=== PATIENT | male | born 1950 | race African-American/Black ===

== ENCOUNTER 2019-02-12 17:02 | Inpatient (IN) | payer MEDICARE, MEDICAID ==
[~2019-02-12] VITALS: Ht 180.3 cm; Wt 54.0 kg
[~2019-02-12 17:02] MED LIST: AMLO10TA80 PO; ASPI-986 PO; ATEN-42 PO; ATOR20TA PO; CLOP75TA4 PO; COR25 PO; DOXA4TAB3 PO; FAMO20TA8 PO; GLIP5TAB12 PO; LORA10TA7 PO; LOSA100T32 PO; METF1000 PO; NAPR-681 PO; PERP1TAB8 PO; SAXA5TAB PO; TRAM50TA3 PO; TRIAVIL PO
[2019-02-12] MEDS ORDERED: SODIUM CHLORIDE 0.9% 1,000 ML IV ONE (17:24)
[2019-02-12] MEDS ORDERED: MORPHINE SULFATE 4 MG/ML CPJ (NOT FOR IM USE) IV STA (17:24)
[2019-02-12] MEDS ORDERED: ONDANSETRON HCL 4MG/2ML INJ IV STA (17:24)
[2019-02-12 17:55] LABS: BASOPHILS % 0.6 % (0.0-2.0); HEMATOCRIT. 47.9 % (42.0-52.0); HEMOGLOBIN. 16.1 g/dL (14.0-18.0); LYMPHOCYTES % 11.7 % (20.0-50.0); MEAN CORPUSCULAR HEMOGLOBIN 29.8 pg (28.0-32.0); MEAN CORPUSCULAR VOLUME 88.8 fL (80.0-94.0); MEAN PLATELET VOLUME 7.2 fl (7.4-10.4); MONOCYTES % 7.6 % (2.0-8.0); NEUTROPHILS % 80.1 % (40.0-76.0); PLATELET 240 x1000/uL (130-400); RED CELL DISTRIBUTION WIDTH 13.9 % (11.6-14.6)
[2019-02-12 18:00] LABS: CHLORIDE 80 mEq/L (98-107)
[2019-02-12 18:04] LABS: ETHANOL BLOOD < 10 mg/dL
[2019-02-12 18:15] LABS: D-DIMER 0.63 mg/L FEU (<0.50); PARTIAL THROMBOPLASTIN TIME 30.5 sec (23.4-31.0); PROTHROMBIN TIME 10.8 sec (9.6-11.0)
[2019-02-12] MEDS ORDERED: SODIUM CHLORIDE 3% 500 ML IV ONE (19:30)
[2019-02-12 19:32] LABS: CLARITY URINE CLEAR (CLEAR); COLOR URINE YELLOW (YELLOW); KETONES URINE 1+ (NEGATIVE); LEUKOCYTE ESTERASE URINE NEGATIVE (NEGATIVE); NITRITE URINE NEGATIVE (NEGATIVE); OCCULT BLOOD URINE TRACE (NEGATIVE); PROTEIN URINE 1+ (NEGATIVE); SPECIFIC GRAVITY URINE 1.012 (1.005-1.030); UROBILINOGEN URINE 0.2 E.U./dL (0.2-1.0)
[2019-02-12 19:43] LABS: *AMPHETAMINES SCREEN URINE NEGATIVE (NEGATIVE); *BARBITURATES SCREEN URINE NEGATIVE (NEGATIVE); *BENZODIAZEPINES SCREEN URINE NEGATIVE (NEGATIVE); *COCAINE SCREEN URINE NEGATIVE (NEGATIVE); METHADONE URINE SCREEN NEGATIVE (NEGATIVE); OPIATES URINE SCREEN PRESUMTIVE POSITIVE (NEGATIVE)
[2019-02-12 19:44] LABS: CANNABINOID URINE SCREEN PRESUMTIVE POSITIVE (NEGATIVE); PHENCYCLIDINE URINE SCREEN NEGATIVE (NEGATIVE)
[2019-02-12] MEDS ORDERED: ASPIRIN 325MG EC TABLET PO ONE (20:00)
[2019-02-12] MEDS ORDERED: MORPHINE SULFATE 4 MG/ML CPJ (NOT FOR IM USE) IV ONE (20:45)
[2019-02-12] MEDS ORDERED: IOHEXOL-350 100 ML BOTTLE ONE (21:03)
[2019-02-12] MEDS ORDERED: ONDANSETRON HCL 4MG/2ML INJ IV PRN (21:45)
[2019-02-12] MEDS ORDERED: GUAIFENESIN 200MG/10ML SUGAR FREE UDC PO PRN (21:45)
[2019-02-12] MEDS ORDERED: ACETAMINOPHEN 325MG TABLET PO PRN (21:45)
[2019-02-12] MEDS ORDERED: IPRATROPIUM/ALBUTEROL 0.5-3(2.5)MG/3ML NEB HHN PRN (21:45)
[2019-02-12] MEDS ORDERED: MAGNESIUM/ALUMINUM HYDROXIDE/SIMETHICONE 30ML UDC PO PRN (21:45)
[2019-02-12] MEDS ORDERED: CLONIDINE 0.1MG TABLET PO PRN (21:45)
[2019-02-12] MEDS ORDERED: DOCUSATE SODIUM 100MG CAPSULE PO PRN (21:45)
[2019-02-12] MEDS: MORPHINE SULFATE 2 MG/ML CPJ (NOT FOR IM USE) IV PRN (23:02)
[2019-02-13] VITALS (7 sets, daily range): BP systolic 121–148; BP diastolic 68–89
[2019-02-13 01:25] LABS: CHLORIDE 84 mEq/L (98-107)
[2019-02-13] MEDS: MORPHINE SULFATE 2 MG/ML CPJ (NOT FOR IM USE) IV PRN ×2 (03:19→09:10)
[2019-02-13] MEDS ORDERED: AMLODIPINE 5MG TABLET PO NR (04:00)
[2019-02-13] MEDS: LORAZEPAM 0.5MG TABLET PO PRN (04:01)
[2019-02-13 05:33] LABS: BASOPHILS % 0.1 % (0.0-2.0); HEMATOCRIT. 47.8 % (42.0-52.0); LYMPHOCYTES % 12.8 % (20.0-50.0); MEAN CORPUSCULAR HEMOGLOBIN 29.9 pg (28.0-32.0); MEAN CORPUSCULAR VOLUME 89.2 fL (80.0-94.0); MEAN PLATELET VOLUME 7.4 fl (7.4-10.4); MONOCYTES % 9.6 % (2.0-8.0); NEUTROPHILS % 77.5 % (40.0-76.0); PLATELET 263 x1000/uL (130-400); RED BLOOD CELL COUNT 5.36 mill/uL (4.7-6.1); RED CELL DISTRIBUTION WIDTH 14.2 % (11.6-14.6)
[2019-02-13 05:38] LABS: CHLORIDE 84 mEq/L (98-107)
[2019-02-13 05:46] LABS: LDL CHOLESTEROL 94 mg/dL (5-100)
[2019-02-13 05:47] LABS: CREATINE KINASE 232 IU/L (39-308); HDL CHOLESTEROL 100 mg/dL (40-59)
[2019-02-13] MEDS ORDERED: DEXTROSE 50% WATER 50ML SYRINGE IV PRN (11:00)
[2019-02-13] MEDS: HYDROCODONE/ACETAMINOPHEN 5/325MG TABLET PO PRN (11:06)
[2019-02-13] MEDS: AMLODIPINE 5MG TABLET PO SCH ×2 (11:07→20:24)
[2019-02-13] MEDS ORDERED: GABA-290 MT (11:26)
[2019-02-13] MEDS ORDERED: ASPIRIN 325MG EC TABLET PO SCH (12:15)
[2019-02-13] MEDS ORDERED: HYDROMORPHONE HCL/PF 2MG/ML CPJ IV PRN (12:30)
[2019-02-13] MEDS: CLOPIDOGREL 75MG TABLET PO SCH (12:43)
[2019-02-13] MEDS: BLOOD SUGAR DIAGNOSTIC STRIP TEST SCH ×3 (12:43→20:24)
[2019-02-13] MEDS: FAMOTIDINE 20MG TABLET PO SCH (13:00)
[2019-02-13] MEDS: GABAPENTIN 300MG CAPSULE PO SCH (13:36)
[2019-02-13] MEDS: INSULIN LISPRO 100 UNITS/ML SUBCUT SCH ×3 (13:36→20:38)
[2019-02-13] MEDS: HYDROMORPHONE HCL/PF 2MG/ML CPJ IM PRN ×2 (14:23→20:23)
[2019-02-13] MEDS: SODIUM CHLORIDE 0.9% 1,000 ML IV SCH (17:52)
[2019-02-14] MEDS: DIPHENHYDRAMINE 50MG/ML VIAL IV PRN (00:23)
[2019-02-14] MEDS: LORAZEPAM 0.5MG TABLET PO PRN (00:23)
[2019-02-14] MEDS: HYDROMORPHONE HCL/PF 2MG/ML CPJ IM PRN ×3 (06:07→18:00)
[2019-02-14 08:00] VITALS: BP 151/83
[2019-02-14] MEDS: INSULIN LISPRO 100 UNITS/ML SUBCUT SCH ×4 (08:00→21:41)
[2019-02-14] MEDS: BLOOD SUGAR DIAGNOSTIC STRIP TEST SCH ×4 (08:18→21:00)
[2019-02-14] MEDS: SODIUM CHLORIDE 0.9% 1,000 ML IV SCH (09:38)
[2019-02-14] MEDS: GABAPENTIN 300MG CAPSULE PO SCH (09:39)
[2019-02-14] MEDS: CLOPIDOGREL 75MG TABLET PO SCH (09:39)
[2019-02-14] MEDS: FAMOTIDINE 20MG TABLET PO SCH (09:39)
[2019-02-14] MEDS: ASPIRIN 81MG EC TABLET PO SCH (09:39)
[2019-02-14] MEDS: AMLODIPINE 5MG TABLET PO SCH ×2 (09:39→21:40)
[2019-02-14 10:00] VITALS: BP 156/88
[2019-02-14 12:00] VITALS: BP 148/80
[2019-02-14 14:00] VITALS: BP 102/66
[2019-02-14 16:00] VITALS: BP 147/94
[2019-02-14 18:00] VITALS: BP 130/86
[2019-02-14] MEDS: HYDROCODONE/ACETAMINOPHEN 5/325MG TABLET PO PRN (21:47)
[2019-02-15] VITALS (10 sets, daily range): BP systolic 123–152; BP diastolic 71–95
[2019-02-15] MEDS: SODIUM CHLORIDE 0.9% 1,000 ML IV SCH (01:56)
[2019-02-15] MEDS: HYDROCODONE/ACETAMINOPHEN 5/325MG TABLET PO PRN ×2 (01:56→08:52)
[2019-02-15 06:48] LABS: BASOPHILS % 0.4 % (0.0-2.0); EOSINOPHILS % 0.5 % (0.0-5.0); HEMATOCRIT. 41.7 % (42.0-52.0); HEMOGLOBIN. 13.9 g/dL (14.0-18.0); LYMPHOCYTES % 18.4 % (20.0-50.0); MEAN CORPUSCULAR HEMOGLOBIN 29.5 pg (28.0-32.0); MEAN CORPUSCULAR VOLUME 88.3 fL (80.0-94.0); MEAN PLATELET VOLUME 7.6 fl (7.4-10.4); MONOCYTES % 13.4 % (2.0-8.0); NEUTROPHILS % 67.3 % (40.0-76.0); PLATELET 218 x1000/uL (130-400); RED BLOOD CELL COUNT 4.72 mill/uL (4.7-6.1); RED CELL DISTRIBUTION WIDTH 14.2 % (11.6-14.6)
[2019-02-15] MEDS: BLOOD SUGAR DIAGNOSTIC STRIP TEST SCH ×4 (07:30→21:42)
[2019-02-15 07:37] LABS: CHLORIDE 94 mEq/L (98-107)
[2019-02-15] MEDS: FAMOTIDINE 20MG TABLET PO SCH (08:51)
[2019-02-15] MEDS: ASPIRIN 81MG EC TABLET PO SCH (08:51)
[2019-02-15] MEDS: GABAPENTIN 300MG CAPSULE PO SCH (08:51)
[2019-02-15] MEDS: AMLODIPINE 5MG TABLET PO SCH ×2 (08:51→20:11)
[2019-02-15] MEDS: INSULIN LISPRO 100 UNITS/ML SUBCUT SCH ×4 (08:55→21:00)
[2019-02-15] MEDS ORDERED: DEMECLOCYCLINE HCL 300MG TABLET PO NR (09:15)
[2019-02-15] MEDS: CLOPIDOGREL 75MG TABLET PO SCH (10:05)
[2019-02-15] MEDS: HYDROMORPHONE HCL/PF 2MG/ML CPJ IM PRN ×2 (11:17→20:12)
[2019-02-15] MEDS ORDERED: DEMECLOCYCLINE HCL 300MG TABLET PO SCH (14:00)
[2019-02-15 18:03] LABS: HEPATITIS B SURFACE ANTIGEN NEGATIVE
[2019-02-15] MEDS: DEMECLOCYCLINE HCL 300MG TABLET PO SCH (20:11)
[2019-02-16] VITALS (13 sets, daily range): BP systolic 118–159; BP diastolic 74–98
[2019-02-16] MEDS: HYDROMORPHONE HCL/PF 2MG/ML CPJ IM PRN ×4 (02:24→22:06)
[2019-02-16 07:03] LABS: BASOPHILS % 0.6 % (0.0-2.0); EOSINOPHILS % 0.7 % (0.0-5.0); HEMATOCRIT. 42.9 % (42.0-52.0); HEMOGLOBIN. 14.3 g/dL (14.0-18.0); MEAN CORPUSCULAR HEMOGLOBIN 29.6 pg (28.0-32.0); MEAN CORPUSCULAR VOLUME 88.9 fL (80.0-94.0); MEAN PLATELET VOLUME 7.6 fl (7.4-10.4); MONOCYTES % 13.7 % (2.0-8.0); PLATELET 251 x1000/uL (130-400); RED BLOOD CELL COUNT 4.83 mill/uL (4.7-6.1)
[2019-02-16 07:13] LABS: CHLORIDE 94 mEq/L (98-107)
[2019-02-16] MEDS: BLOOD SUGAR DIAGNOSTIC STRIP TEST SCH ×4 (07:47→20:13)
[2019-02-16] MEDS: INSULIN LISPRO 100 UNITS/ML SUBCUT SCH ×4 (08:00→20:15)
[2019-02-16] MEDS: GABAPENTIN 300MG CAPSULE PO SCH (09:19)
[2019-02-16] MEDS: ASPIRIN 81MG EC TABLET PO SCH (09:19)
[2019-02-16] MEDS: DEMECLOCYCLINE HCL 300MG TABLET PO SCH ×2 (09:19→20:07)
[2019-02-16] MEDS: FAMOTIDINE 20MG TABLET PO SCH (09:19)
[2019-02-16] MEDS: AMLODIPINE 5MG TABLET PO SCH ×2 (09:20→20:07)
[2019-02-16] MEDS: CLOPIDOGREL 75MG TABLET PO SCH (09:33)
[2019-02-16] MEDS: DIPHENHYDRAMINE 50MG/ML VIAL IV PRN (17:58)
[2019-02-17] VITALS (9 sets, daily range): BP systolic 109–159; BP diastolic 57–83
[2019-02-17] MEDS: HYDROMORPHONE HCL/PF 2MG/ML CPJ IM PRN ×2 (04:09→10:15)
[2019-02-17 06:11] LABS: BASOPHILS % 0.4 % (0.0-2.0); EOSINOPHILS % 0.8 % (0.0-5.0); HEMATOCRIT. 43.5 % (42.0-52.0); HEMOGLOBIN. 14.4 g/dL (14.0-18.0); LYMPHOCYTES % 21.7 % (20.0-50.0); MEAN CORPUSCULAR HEMOGLOBIN 29.7 pg (28.0-32.0); MEAN CORPUSCULAR VOLUME 89.5 fL (80.0-94.0); MEAN PLATELET VOLUME 7.5 fl (7.4-10.4); MONOCYTES % 14.7 % (2.0-8.0); NEUTROPHILS % 62.4 % (40.0-76.0); PLATELET 243 x1000/uL (130-400); RED BLOOD CELL COUNT 4.87 mill/uL (4.7-6.1); RED CELL DISTRIBUTION WIDTH 14.3 % (11.6-14.6)
[2019-02-17] MEDS: BLOOD SUGAR DIAGNOSTIC STRIP TEST SCH ×2 (07:30→12:15)
[2019-02-17 07:49] LABS: CHLORIDE 93 mEq/L (98-107)
[2019-02-17] MEDS: INSULIN LISPRO 100 UNITS/ML SUBCUT SCH ×2 (08:00→13:24)
[2019-02-17] MEDS: CLOPIDOGREL 75MG TABLET PO SCH (10:12)
[2019-02-17] MEDS: DIPHENHYDRAMINE 50MG/ML VIAL IV PRN (10:13)
[2019-02-17] MEDS: AMLODIPINE 5MG TABLET PO SCH (10:13)
[2019-02-17] MEDS: FAMOTIDINE 20MG TABLET PO SCH (10:13)
[2019-02-17] MEDS: DEMECLOCYCLINE HCL 300MG TABLET PO SCH (10:13)
[2019-02-17] MEDS: ASPIRIN 81MG EC TABLET PO SCH (10:14)
[2019-02-17] MEDS: GABAPENTIN 300MG CAPSULE PO SCH (10:36)
== END 2019-02-17 16:00 | disposition home or self-care (01) | DRG 641 ==
LOC: ER 17:02 → 5EST 19:56 → ENRESERV 02-13 08:27
PROVIDERS: ADMIT Family Medicine Adult Medicine; ATTEND Family Medicine Adult Medicine
DX: E87.1 Hypo-osmolality and hyponatremia (principal); I45.10 Unspecified right bundle-branch block; R07.89 Other chest pain; E78.5 Hyperlipidemia, unspecified; E11.40 Type 2 diabetes mellitus with diabetic neuropathy, unspecified; I25.10 Atherosclerotic heart disease of native coronary artery without angina pectoris; E11.22 Type 2 diabetes mellitus with diabetic chronic kidney disease; I12.9 Hypertensive chronic kidney disease with stage 1 through stage 4 chronic kidney disease, or unspecified chronic kidney disease; Z96.642 Presence of left artificial hip joint; K59.00 Constipation, unspecified; N18.1 Chronic kidney disease, stage 1; Z82.49 Family history of ischemic heart disease and other diseases of the circulatory system; Z95.5 Presence of coronary angioplasty implant and graft; Z83.3 Family history of diabetes mellitus; Z79.899 Other long term (current) drug therapy; Z79.82 Long term (current) use of aspirin; Z79.84 Long term (current) use of oral hypoglycemic drugs
CPT/HCPCS: 36415; 71045; 71275; 74176; 80048; 80061; 80305; 80320; 81003; 82533; 82550; 82570; 82962; 83036; 83880; 83930; 83935; 84295; 84300; 84443; 84484; 85379; 93005; 93306; 93970; 97162; 97166; 99291; J1170; J1200; J1815; J2270; J2405; J7030; Q9967; G0480

== ENCOUNTER 2019-03-27 20:37 | Inpatient (IN) | payer MEDICARE, MEDICAID ==
[~2019-03-27] VITALS: Ht 180.3 cm; Wt 59.9 kg
[~2019-03-27 20:37] MED LIST changes: -ATEN-42 PO; -ATOR20TA PO; -COR25 PO; -DOXA4TAB3 PO; +GABA-290 MT; -GLIP5TAB12 PO; -LORA10TA7 PO; -LOSA100T32 PO; -METF1000 PO; -NAPR-681 PO; -PERP1TAB8 PO; -SAXA5TAB PO; -TRAM50TA3 PO; -TRIAVIL PO
[2019-03-27] MEDS ORDERED: SODIUM CHLORIDE 0.9% 1,000 ML IV ONE (21:09)
[2019-03-27] MEDS ORDERED: ONDANSETRON HCL 4MG/2ML INJ IV STA (21:09)
[2019-03-27] MEDS ORDERED: MORPHINE SULFATE 4 MG/ML CPJ (NOT FOR IM USE) IV STA (21:09)
[2019-03-27 21:39] LABS: BASOPHILS % 0.7 % (0.0-2.0); EOSINOPHILS % 1.2 % (0.0-5.0); HEMATOCRIT. 40.7 % (42.0-52.0); HEMOGLOBIN. 13.8 g/dL (14.0-18.0); LYMPHOCYTES % 25.1 % (20.0-50.0); MEAN CORPUSCULAR HEMOGLOBIN 30.4 pg (28.0-32.0); MEAN CORPUSCULAR VOLUME 89.5 fL (80.0-94.0); MEAN PLATELET VOLUME 6.9 fl (7.4-10.4); MONOCYTES % 12.2 % (2.0-8.0); NEUTROPHILS % 60.8 % (40.0-76.0); PLATELET 263 x1000/uL (130-400); RED BLOOD CELL COUNT 4.55 mill/uL (4.7-6.1); RED CELL DISTRIBUTION WIDTH 15.2 % (11.6-14.6)
[2019-03-27 21:44] LABS: CHLORIDE 89 mEq/L (98-107)
[2019-03-27] MEDS ORDERED: AMLODIPINE 10MG TABLET PO ONE (23:30)
[2019-03-27] MEDS ORDERED: CLONIDINE 0.1MG TABLET PO ONE (23:30)
[2019-03-27] MEDS ORDERED: ASPIRIN 325MG TABLET PO ONE (23:45)
[2019-03-28 00:22] LABS: CLARITY URINE CLEAR (CLEAR); COLOR URINE YELLOW (YELLOW); KETONES URINE 1+ (NEGATIVE); LEUKOCYTE ESTERASE URINE NEGATIVE (NEGATIVE); NITRITE URINE NEGATIVE (NEGATIVE); OCCULT BLOOD URINE NEGATIVE (NEGATIVE); PROTEIN URINE NEGATIVE (NEGATIVE); SPECIFIC GRAVITY URINE 1.004 (1.005-1.030); UROBILINOGEN URINE 0.2 E.U./dL (0.2-1.0)
[2019-03-28] MEDS: MORPHINE SULFATE 2 MG/ML CPJ (NOT FOR IM USE) IV PRN ×2 (03:40→10:24)
[2019-03-28 06:10] VITALS: BP 135/83
[2019-03-28 09:35] VITALS: BP 102/62
[2019-03-28] MEDS ORDERED: ONDANSETRON HCL 4MG/2ML INJ IV PRN (09:45)
[2019-03-28] MEDS ORDERED: CLOPIDOGREL 75MG TABLET PO SCH (09:45)
[2019-03-28] MEDS ORDERED: ACETAMINOPHEN 325MG TABLET PO PRN (09:45)
[2019-03-28] MEDS ORDERED: ASPIRIN 325MG EC TABLET PO SCH (09:45)
[2019-03-28] MEDS: CARVEDILOL 3.125 MG TABLET PO SCH ×2 (10:24→10:28)
[2019-03-28] MEDS ORDERED: SODIUM CHLORIDE 0.9% 1,000 ML IV SCH (11:15)
[2019-03-28 12:01] VITALS: BP 132/72
[2019-03-28] MEDS ORDERED: INSULIN LISPRO 100 UNITS/ML SUBCUT SCH (12:40)
[2019-03-28] MEDS ORDERED: DEXTROSE 50% WATER 50ML SYRINGE IV PRN (12:45)
[2019-03-28] MEDS ORDERED: ENOXAPARIN 40MG/0.4ML SYR SUBCUT SCH (13:00)
[2019-03-28 13:33] LABS: CHLORIDE 95 mEq/L (98-107)
[2019-03-28 13:40] LABS: LDL CHOLESTEROL 87 mg/dL (5-100)
[2019-03-28 13:42] LABS: HDL CHOLESTEROL 57 mg/dL (40-59)
[2019-03-28 13:58] LABS: BASOPHILS % 0.9 % (0.0-2.0); EOSINOPHILS % 1.2 % (0.0-5.0); HEMATOCRIT. 38.3 % (42.0-52.0); HEMOGLOBIN. 12.9 g/dL (14.0-18.0); LYMPHOCYTES % 16.9 % (20.0-50.0); MEAN CORPUSCULAR HEMOGLOBIN 30.2 pg (28.0-32.0); MEAN CORPUSCULAR VOLUME 89.9 fL (80.0-94.0); MEAN PLATELET VOLUME 6.9 fl (7.4-10.4); MONOCYTES % 11.1 % (2.0-8.0); NEUTROPHILS % 69.9 % (40.0-76.0); PLATELET 256 x1000/uL (130-400); RED BLOOD CELL COUNT 4.26 mill/uL (4.7-6.1); RED CELL DISTRIBUTION WIDTH 15.5 % (11.6-14.6)
[2019-03-28 14:34] LABS: SODIUM URINE RANDOM 45 mEq/L
[2019-03-28 14:40] LABS: *AMPHETAMINES SCREEN URINE NEGATIVE (NEGATIVE); *BARBITURATES SCREEN URINE NEGATIVE (NEGATIVE); *BENZODIAZEPINES SCREEN URINE NEGATIVE (NEGATIVE); *COCAINE SCREEN URINE NEGATIVE (NEGATIVE)
[2019-03-28 14:41] LABS: CANNABINOID URINE SCREEN NEGATIVE (NEGATIVE); METHADONE URINE SCREEN NEGATIVE (NEGATIVE); OPIATES URINE SCREEN PRESUMTIVE POSITIVE (NEGATIVE); PHENCYCLIDINE URINE SCREEN NEGATIVE (NEGATIVE)
[2019-03-28] MEDS ORDERED: BLOOD SUGAR DIAGNOSTIC STRIP TEST SCH (17:10)
== END 2019-03-28 15:08 | disposition left against medical advice (07) | DRG 392 ==
LOC: ER 20:37 → 8WST 23:40 → EDBEDREQ 03-28 00:02 → EDBEDREQDT 03-28 00:02 → EDBEDREQTM 03-28 00:02 → ENRESERV 03-28 04:38
PROVIDERS: ADMIT Internal Medicine; ATTEND Internal Medicine
DX: K52.9 Noninfective gastroenteritis and colitis, unspecified (principal); E87.1 Hypo-osmolality and hyponatremia; I13.0 Hypertensive heart and chronic kidney disease with heart failure and stage 1 through stage 4 chronic kidney disease, or unspecified chronic kidney disease; I42.9 Cardiomyopathy, unspecified; I50.22 Chronic systolic (congestive) heart failure; E11.22 Type 2 diabetes mellitus with diabetic chronic kidney disease; E78.5 Hyperlipidemia, unspecified; E87.8 Other disorders of electrolyte and fluid balance, not elsewhere classified; F17.210 Nicotine dependence, cigarettes, uncomplicated; I25.10 Atherosclerotic heart disease of native coronary artery without angina pectoris; N18.9 Chronic kidney disease, unspecified; N40.0 Benign prostatic hyperplasia without lower urinary tract symptoms; Z95.5 Presence of coronary angioplasty implant and graft; Z53.29 Procedure and treatment not carried out because of patient's decision for other reasons
CPT/HCPCS: 36415; 74176; 80048; 80061; 80305; 81003; 82962; 83880; 83930; 83935; 84300; 84443; 84484; 93005; 96361; 96374; 96375; 99285; J1650; J1815; J2270; J2405; J7030

== ENCOUNTER 2019-05-25 02:33 | Inpatient (IN) | payer MEDICARE, MEDICAID ==
[2019-05-25] VITALS (58 sets, daily range): BP systolic 78–180; BP diastolic 48–113
[~2019-05-25] VITALS: Ht 170.2 cm; Wt 59.4 kg
[2019-05-25] MEDS ORDERED: ONDANSETRON HCL 4MG/2ML INJ IV STA (02:42)
[2019-05-25] MEDS ORDERED: LABETALOL HCL 20MG/4ML CARPUJECT IV ONE (02:45)
[2019-05-25] MEDS ORDERED: NITROGLYCERIN OINT 1GM/INCH UDPKT TD ONE (02:45)
[2019-05-25 03:10] LABS: EOSINOPHILS % 0.8 % (0.0-5.0); HEMATOCRIT. 29.7 % (42.0-52.0); HEMOGLOBIN. 9.2 g/dL (14.0-18.0); LYMPHOCYTES % 24.3 % (20.0-50.0); MEAN CORPUSCULAR VOLUME 87.2 fL (80.0-94.0); MEAN PLATELET VOLUME 7.9 fl (7.4-10.4); MONOCYTES % 9.2 % (2.0-8.0); NEUTROPHILS % 64.7 % (40.0-76.0); PLATELET 480 x1000/uL (130-400); RED BLOOD CELL COUNT 3.41 mill/uL (4.7-6.1); RED CELL DISTRIBUTION WIDTH 18.5 % (11.6-14.6)
[2019-05-25 03:28] LABS: CHLORIDE 96 mEq/L (98-107)
[2019-05-25] MEDS ORDERED: SUCCINYLCHOLINE CHLORIDE 200MG/10ML IV ONE (03:30)
[2019-05-25] MEDS ORDERED: ETOMIDATE 2MG/ML 10ML VIAL IV ONE (03:30)
[2019-05-25] MEDS ORDERED: PROPOFOL 10MG/ML 100ML 100 ML IV ONE (03:30)
[2019-05-25] MEDS ORDERED: MIDAZOLAM HCL 50 MG in DEXTROSE 5% WATER 40 ML IV ONE (04:45)
[2019-05-25] MEDS ORDERED: FENTANYL CITRATE/PF 500 MCG in SODIUM CHLORIDE 0.9% 40 ML IV PRN ×3 (04:45→10:15)
[2019-05-25 09:47] LABS: BG BASE EXCESS -5.9 mmol/L (-2.0-2.0); BG CARBOXYHEMOGLOBIN 1.2 % (0.5-1.5); BG DEOXYHEMOGLOBIN 4.6 % (0.0-5.0); BG FRACTION INSPIRED OXYGEN 100; BG HCO3 ACT 19.8 mmol/L (22.0-26.0); BG METHEMOGLOBIN 0.3 % (0.0-1.5); BG OXYGEN SATURATION 95.3 % (92.0-98.5); BG OXYHEMOGLOBIN 93.9 % (94.0-97.0); BG PCO2 39.7 mmHg (35.0-45.0); BG PH 7.315 (7.350-7.450); BG PO2 98.5 mmHg (75.0-100.0); BG SAMPLE SITE RIGHT RADIAL; BG TIDAL VOLUME(mL) 500 mL; BG TOTAL HEMOGLOBIN 8.1 g/dL (12.0-18.0); BG VENT MODE VENT - A/C; BG VENT RATE 18 set
[2019-05-25] MEDS ORDERED: MIDAZOLAM HCL 50 MG in DEXTROSE 5% WATER 40 ML IV PRN (10:15)
[2019-05-25] MEDS ORDERED: DEXTROSE 50% WATER 50ML SYRINGE IV PRN (10:45)
[2019-05-25] MEDS ORDERED: IPRATROPIUM/ALBUTEROL 0.5-3(2.5)MG/3ML NEB HHN PRN (10:45)
[2019-05-25] MEDS ORDERED: FUROSEMIDE 40MG/4ML VIAL IVP NR (11:15)
[2019-05-25] MEDS: BLOOD SUGAR DIAGNOSTIC STRIP TEST SCH ×3 (11:30→21:06)
[2019-05-25] MEDS: BUDESONIDE 0.5MG/2ML NEB HHN SCH (11:42)
[2019-05-25] MEDS: IPRATROPIUM/ALBUTEROL 0.5-3(2.5)MG/3ML NEB HHN SCH ×3 (11:42→20:59)
[2019-05-25] MEDS ORDERED: VANCOMYCIN 1250MG in DEXTROSE 5% WATER 250ML IV SCH (13:00)
[2019-05-25] MEDS: PIPERACILLIN/TAZOBACTAM 3.375 G in DEXT 5% WATER 100 ML IV SCH ×2 (13:03→18:08)
[2019-05-25] MEDS: ENOXAPARIN 40MG/0.4ML SYR SUBCUT SCH (13:09)
[2019-05-25] MEDS: INSULIN LISPRO 100 UNITS/ML SUBCUT SCH ×3 (13:10→21:00)
[2019-05-25] MEDS: FENTANYL CITRATE/PF 500 MCG in SODIUM CHLORIDE 0.9% 40 ML IV PRN ×2 (13:18→21:50)
[2019-05-25] MEDS ORDERED: INFLUENZA VIRUS VACCINE(AFLURIA) 0.5ML SYR IM ONE (14:30)
[2019-05-25] MEDS ORDERED: PNEUMOCOCCAL 23-VAL P-SAC VAC 0.5 ML IM ONE (14:30)
[2019-05-25] MEDS: MIDAZOLAM HCL 50 MG in DEXTROSE 5% WATER 40 ML IV PRN ×2 (14:47→23:15)
[2019-05-25 15:46] LABS: CLARITY URINE CLEAR (CLEAR); COLOR URINE YELLOW (YELLOW); KETONES URINE NEGATIVE (NEGATIVE); LEUKOCYTE ESTERASE URINE NEGATIVE (NEGATIVE); NITRITE URINE NEGATIVE (NEGATIVE); OCCULT BLOOD URINE TRACE (NEGATIVE); PH URINE 6.5 (4.5-8.0); PROTEIN URINE NEGATIVE (NEGATIVE); SPECIFIC GRAVITY URINE 1.019 (1.005-1.030); UROBILINOGEN URINE 0.2 E.U./dL (0.2-1.0)
[2019-05-25 16:17] LABS: *AMPHETAMINES SCREEN URINE NEGATIVE (NEGATIVE); CANNABINOID URINE SCREEN PRESUMTIVE POSITIVE (NEGATIVE)
[2019-05-25 16:18] LABS: *BARBITURATES SCREEN URINE NEGATIVE (NEGATIVE); *BENZODIAZEPINES SCREEN URINE PRESUMTIVE POSITIVE (NEGATIVE); *COCAINE SCREEN URINE NEGATIVE (NEGATIVE); METHADONE URINE SCREEN NEGATIVE (NEGATIVE); OPIATES URINE SCREEN NEGATIVE (NEGATIVE); PHENCYCLIDINE URINE SCREEN NEGATIVE (NEGATIVE)
[2019-05-25] MEDS: NOREPINEPHRINE 8 MG in DEXT 5% WATER 242 ML IV PRN (20:37)
[2019-05-25] MEDS: INSULIN GLARGINE UD 100 UNITS/ML SYR SUBCUT SCH (21:13)
[2019-05-26] VITALS (86 sets, daily range): BP systolic 73–214; BP diastolic 29–112
[2019-05-26] MEDS: IPRATROPIUM/ALBUTEROL 0.5-3(2.5)MG/3ML NEB HHN SCH ×6 (00:20→16:33)
[2019-05-26] MEDS: PIPERACILLIN/TAZOBACTAM 3.375 G in DEXT 5% WATER 100 ML IV SCH ×4 (00:40→19:00)
[2019-05-26] MEDS: VANCOMYCIN 1 G PREMIX 200 ML IV SCH ×2 (01:15→12:42)
[2019-05-26] MEDS: BLOOD SUGAR DIAGNOSTIC STRIP TEST SCH ×4 (05:55→21:00)
[2019-05-26] MEDS: FENTANYL CITRATE/PF 500 MCG in SODIUM CHLORIDE 0.9% 40 ML IV PRN ×3 (05:57→18:19)
[2019-05-26] MEDS: MIDAZOLAM HCL 50 MG in DEXTROSE 5% WATER 40 ML IV PRN (05:57)
[2019-05-26] MEDS: INSULIN LISPRO 100 UNITS/ML SUBCUT SCH ×4 (06:04→21:00)
[2019-05-26 06:24] LABS: CHLORIDE 97 mEq/L (98-107)
[2019-05-26 06:27] LABS: HEMATOCRIT. 23.8 % (42.0-52.0); HEMOGLOBIN. 7.7 g/dL (14.0-18.0); MEAN CORPUSCULAR HEMOGLOBIN 27.2 pg (28.0-32.0); MEAN CORPUSCULAR VOLUME 84.2 fL (80.0-94.0); MEAN PLATELET VOLUME 8.1 fl (7.4-10.4); PLATELET 329 x1000/uL (130-400); RED BLOOD CELL COUNT 2.83 mill/uL (4.7-6.1); RED CELL DISTRIBUTION WIDTH 18.6 % (11.6-14.6)
[2019-05-26 08:01] LABS: BG CARBOXYHEMOGLOBIN 0.8 % (0.5-1.5); BG DEOXYHEMOGLOBIN 1.7 % (0.0-5.0); BG HCO3 ACT 31.5 mmol/L (22.0-26.0); BG METHEMOGLOBIN 0.3 % (0.0-1.5); BG OXYGEN SATURATION 98.3 % (92.0-98.5); BG OXYHEMOGLOBIN 97.2 % (94.0-97.0); BG PCO2 39.5 mmHg (35.0-45.0); BG PO2 137.3 mmHg (75.0-100.0); BG SAMPLE SITE RIGHT RADIAL; BG TIDAL VOLUME(mL) 500 mL; BG TOTAL HEMOGLOBIN 7.7 g/dL (12.0-18.0); BG VENT MODE VENT - A/C; BG VENT RATE 18 set
[2019-05-26] MEDS: BUDESONIDE 0.5MG/2ML NEB HHN SCH (08:11)
[2019-05-26 08:13] LABS: PLATELET ESTIMATE NORMAL
[2019-05-26] MEDS ORDERED: MIDODRINE HCL 5MG TABLET PO SCH (09:00)
[2019-05-26] MEDS: LOSARTAN POTASSIUM 25 MG TABLET PO SCH ×2 (09:00→09:14)
[2019-05-26] MEDS ORDERED: FUROSEMIDE 40MG/4ML VIAL IVP SCH (09:00)
[2019-05-26] MEDS: PANTOPRAZOLE SODIUM 40 MG/VIAL IV SCH (09:14)
[2019-05-26] MEDS: ENOXAPARIN 40MG/0.4ML SYR SUBCUT SCH (09:17)
[2019-05-26] MEDS: INSULIN GLARGINE UD 100 UNITS/ML SYR SUBCUT SCH (09:21)
[2019-05-26] MEDS ORDERED: PROPOFOL 10MG/ML 100ML 100 ML IV PRN (09:30)
[2019-05-26] MEDS ORDERED: FUROSEMIDE 20MG/2ML VIAL IVP SCH (11:00)
[2019-05-26] MEDS: MIDAZOLAM HCL 100 MG in DEXT 5% WATER 80 ML IV PRN (12:11)
[2019-05-27] VITALS (50 sets, daily range): BP systolic 70–185; BP diastolic 43–154
[2019-05-27] MEDS: IPRATROPIUM/ALBUTEROL 0.5-3(2.5)MG/3ML NEB HHN SCH ×6 (00:02→20:43)
[2019-05-27] MEDS: PIPERACILLIN/TAZOBACTAM 3.375 G in DEXT 5% WATER 100 ML IV SCH ×3 (01:00→12:07)
[2019-05-27] MEDS: VANCOMYCIN 1 G PREMIX 200 ML IV SCH (01:00)
[2019-05-27] MEDS: FENTANYL CITRATE/PF 500 MCG in SODIUM CHLORIDE 0.9% 40 ML IV PRN ×3 (02:32→17:01)
[2019-05-27] MEDS: BLOOD SUGAR DIAGNOSTIC STRIP TEST SCH ×4 (07:03→22:00)
[2019-05-27] MEDS: INSULIN LISPRO 100 UNITS/ML SUBCUT SCH ×4 (07:13→22:30)
[2019-05-27 07:49] LABS: HEMATOCRIT. 23.4 % (42.0-52.0); HEMOGLOBIN. 7.4 g/dL (14.0-18.0); MEAN CORPUSCULAR HEMOGLOBIN 26.8 pg (28.0-32.0); MEAN CORPUSCULAR VOLUME 84.7 fL (80.0-94.0); MEAN PLATELET VOLUME 8.2 fl (7.4-10.4); PLATELET 310 x1000/uL (130-400); RED BLOOD CELL COUNT 2.76 mill/uL (4.7-6.1); RED CELL DISTRIBUTION WIDTH 18.4 % (11.6-14.6)
[2019-05-27 07:54] LABS: CHLORIDE 96 mEq/L (98-107)
[2019-05-27] MEDS: BUDESONIDE 0.5MG/2ML NEB HHN SCH ×2 (08:36→20:44)
[2019-05-27 09:15] LABS: BG BASE EXCESS 11.9 mmol/L (-2.0-2.0); BG CARBOXYHEMOGLOBIN 1.3 % (0.5-1.5); BG DEOXYHEMOGLOBIN 1.5 % (0.0-5.0); BG FRACTION INSPIRED OXYGEN 40; BG HCO3 ACT 37.3 mmol/L (22.0-26.0); BG METHEMOGLOBIN 0.2 % (0.0-1.5); BG OXYGEN SATURATION 98.5 % (92.0-98.5); BG PCO2 55.8 mmHg (35.0-45.0); BG PH 7.443 (7.350-7.450); BG PO2 137.5 mmHg (75.0-100.0); BG SAMPLE SITE RIGHT BRACHIAL; BG TIDAL VOLUME(mL) 500 mL; BG TOTAL HEMOGLOBIN 7.3 g/dL (12.0-18.0); BG VENT MODE VENT - A/C; BG VENT RATE 14 set
[2019-05-27] MEDS: PANTOPRAZOLE SODIUM 40 MG/VIAL IV SCH (09:53)
[2019-05-27] MEDS: ENOXAPARIN 40MG/0.4ML SYR SUBCUT SCH (09:54)
[2019-05-27] MEDS: LOSARTAN POTASSIUM 25 MG TABLET PO SCH (09:55)
[2019-05-27 11:13] LABS: PLATELET ESTIMATE NORMAL
[2019-05-27] MEDS: VANCOMYCIN 1250MG in DEXTROSE 5% WATER 250ML IV SCH (12:11)
[2019-05-27] MEDS ORDERED: POTASSIUM CHLORIDE 20MEQ TABLET SR PO NR (14:45)
[2019-05-27] MEDS: MIDAZOLAM HCL 100 MG in DEXT 5% WATER 80 ML IV PRN (15:02)
[2019-05-28] VITALS (63 sets, daily range): BP systolic 91–186; BP diastolic 53–112
[2019-05-28] MEDS: FENTANYL CITRATE/PF 500 MCG in SODIUM CHLORIDE 0.9% 40 ML IV PRN ×4 (00:02→20:02)
[2019-05-28] MEDS: IPRATROPIUM/ALBUTEROL 0.5-3(2.5)MG/3ML NEB HHN SCH ×6 (00:45→20:28)
[2019-05-28] MEDS: VANCOMYCIN 1250MG in DEXTROSE 5% WATER 250ML IV SCH ×2 (01:00→13:08)
[2019-05-28] MEDS: NOREPINEPHRINE 8 MG in DEXT 5% WATER 242 ML IV PRN (01:53)
[2019-05-28] MEDS: VANCOMYCIN 1 G PREMIX 200 ML IV SCH (02:22)
[2019-05-28] MEDS: MIDAZOLAM HCL 100 MG in DEXT 5% WATER 80 ML IV PRN ×2 (04:42→13:06)
[2019-05-28 06:17] LABS: BASOPHILS % 0.3 % (0.0-2.0); EOSINOPHILS % 0.8 % (0.0-5.0); HEMATOCRIT. 21.1 % (42.0-52.0); LYMPHOCYTES % 15.8 % (20.0-50.0); MEAN CORPUSCULAR HEMOGLOBIN 27.2 pg (28.0-32.0); MEAN CORPUSCULAR VOLUME 83.9 fL (80.0-94.0); MEAN PLATELET VOLUME 7.9 fl (7.4-10.4); MONOCYTES % 12.4 % (2.0-8.0); NEUTROPHILS % 70.7 % (40.0-76.0); PLATELET 278 x1000/uL (130-400); RED BLOOD CELL COUNT 2.51 mill/uL (4.7-6.1); RED CELL DISTRIBUTION WIDTH 18.6 % (11.6-14.6)
[2019-05-28 06:24] LABS: CHLORIDE 99 mEq/L (98-107)
[2019-05-28 06:26] LABS: HEMOGLOBIN. 6.8 g/dL (14.0-18.0)
[2019-05-28] MEDS: BLOOD SUGAR DIAGNOSTIC STRIP TEST SCH ×4 (07:15→21:00)
[2019-05-28] MEDS: INSULIN LISPRO 100 UNITS/ML SUBCUT SCH ×4 (07:21→21:00)
[2019-05-28] MEDS: BUDESONIDE 0.5MG/2ML NEB HHN SCH ×2 (08:42→20:29)
[2019-05-28] MEDS: PIPERACILLIN/TAZOBACTAM 3.375 G in DEXT 5% WATER 100 ML IV SCH ×3 (09:10→21:27)
[2019-05-28] MEDS: LOSARTAN POTASSIUM 25 MG TABLET PO SCH (09:12)
[2019-05-28 10:45] LABS: TOTAL IRON BINDING CAPACITY 239 ug/dL (250-450)
[2019-05-28] MEDS: PANTOPRAZOLE SODIUM 40 MG/VIAL IV SCH ×2 (10:47→21:27)
[2019-05-28 12:23] LABS: BG BASE EXCESS 4.9 mmol/L (-2.0-2.0); BG CARBOXYHEMOGLOBIN 1.4 % (0.5-1.5); BG DEOXYHEMOGLOBIN 5.8 % (0.0-5.0); BG FRACTION INSPIRED OXYGEN 35; BG HCO3 ACT 30.1 mmol/L (22.0-26.0); BG METHEMOGLOBIN 0.3 % (0.0-1.5); BG OXYGEN SATURATION 94.1 % (92.0-98.5); BG OXYHEMOGLOBIN 92.5 % (94.0-97.0); BG PCO2 48.8 mmHg (35.0-45.0); BG PH 7.408 (7.350-7.450); BG PO2 74.4 mmHg (75.0-100.0); BG SAMPLE SITE RIGHT BRACHIAL; BG TIDAL VOLUME(mL) 500 mL; BG TOTAL HEMOGLOBIN 7.4 g/dL (12.0-18.0); BG VENT MODE VENT - A/C; BG VENT RATE 14 set
[2019-05-28] MEDS ORDERED: IRON SUCROSE COMPLEX 100 MG/5 ML ML IV NR (13:15)
[2019-05-28] MEDS: INSULIN GLARGINE UD 100 UNITS/ML SYR SUBCUT SCH (21:27)
[2019-05-29] VITALS (71 sets, daily range): BP systolic 92–189; BP diastolic 35–113
[2019-05-29] MEDS: VANCOMYCIN 1250MG in DEXTROSE 5% WATER 250ML IV SCH ×2 (00:03→16:57)
[2019-05-29] MEDS: IPRATROPIUM/ALBUTEROL 0.5-3(2.5)MG/3ML NEB HHN SCH ×6 (00:15→20:53)
[2019-05-29] MEDS: FENTANYL CITRATE/PF 500 MCG in SODIUM CHLORIDE 0.9% 40 ML IV PRN ×3 (00:43→15:30)
[2019-05-29] MEDS: MIDAZOLAM HCL 100 MG in DEXT 5% WATER 80 ML IV PRN ×2 (00:43→15:29)
[2019-05-29 00:57] LABS: HEMATOCRIT 29.5 % (42.0-52.0); HEMOGLOBIN 9.7 g/dL (14.0-18.0)
[2019-05-29] MEDS: PIPERACILLIN/TAZOBACTAM 3.375 G in DEXT 5% WATER 100 ML IV SCH ×4 (02:29→20:54)
[2019-05-29 05:55] LABS: HEMATOCRIT. 30.6 % (42.0-52.0); HEMOGLOBIN. 10.2 g/dL (14.0-18.0); MEAN CORPUSCULAR HEMOGLOBIN 28.4 pg (28.0-32.0); MEAN CORPUSCULAR VOLUME 85.5 fL (80.0-94.0); PLATELET 256 x1000/uL (130-400); RED BLOOD CELL COUNT 3.59 mill/uL (4.7-6.1); RED CELL DISTRIBUTION WIDTH 17.2 % (11.6-14.6)
[2019-05-29] MEDS: BLOOD SUGAR DIAGNOSTIC STRIP TEST SCH ×4 (06:23→20:54)
[2019-05-29 06:24] LABS: CHLORIDE 99 mEq/L (98-107)
[2019-05-29] MEDS: INSULIN LISPRO 100 UNITS/ML SUBCUT SCH ×4 (06:26→20:54)
[2019-05-29 07:10] LABS: PLATELET ESTIMATE NORMAL
[2019-05-29] MEDS: BUDESONIDE 0.5MG/2ML NEB HHN SCH ×2 (07:50→20:41)
[2019-05-29] MEDS: CLONIDINE 0.1MG TABLET PO PRN (08:14)
[2019-05-29] MEDS: LOSARTAN POTASSIUM 25 MG TABLET PO SCH (08:15)
[2019-05-29] MEDS: IRON SUCROSE COMPLEX 100 MG/5 ML ML IV SCH (09:09)
[2019-05-29] MEDS: PANTOPRAZOLE SODIUM 40 MG/VIAL IV SCH ×2 (09:10→20:54)
[2019-05-29] MEDS: INSULIN GLARGINE UD 100 UNITS/ML SYR SUBCUT SCH ×2 (09:33→21:24)
[2019-05-29 09:55] LABS: BG BASE EXCESS 7.4 mmol/L (-2.0-2.0); BG CARBOXYHEMOGLOBIN 0.9 % (0.5-1.5); BG DEOXYHEMOGLOBIN 4.4 % (0.0-5.0); BG FRACTION INSPIRED OXYGEN 35; BG HCO3 ACT 33.6 mmol/L (22.0-26.0); BG METHEMOGLOBIN 0.1 % (0.0-1.5); BG OXYGEN SATURATION 95.6 % (92.0-98.5); BG OXYHEMOGLOBIN 94.6 % (94.0-97.0); BG PH 7.404 (7.350-7.450); BG PO2 81.1 mmHg (75.0-100.0); BG SAMPLE SITE RIGHT BRACHIAL; BG TIDAL VOLUME(mL) 500 mL; BG TOTAL HEMOGLOBIN 12.2 g/dL (12.0-18.0); BG VENT MODE VENT - A/C; BG VENT RATE 14 set
[2019-05-29 11:18] LABS: PROTHROMBIN TIME 10.2 sec (9.6-11.0)
[2019-05-29] MEDS ORDERED: FENTANYL CITRATE/PF 50MCG/ML 2ML VIAL ONE (15:28)
[2019-05-29] MEDS ORDERED: FENTANYL CITRATE/PF 50MCG/ML 2ML VIAL IV PRN (15:28)
[2019-05-29] MEDS ORDERED: MIDAZOLAM HCL 5 MG/5 ML VIAL ONE (15:28)
[2019-05-29] MEDS ORDERED: SIMETHICONE 40 MG/0.6 ML 30ML ONE (15:28)
[2019-05-29] MEDS ORDERED: MIDAZOLAM HCL 5 MG/5 ML VIAL IV PRN (15:28)
[2019-05-30] VITALS (92 sets, daily range): BP systolic 104–213; BP diastolic 58–123
[2019-05-30] MEDS: IPRATROPIUM/ALBUTEROL 0.5-3(2.5)MG/3ML NEB HHN SCH ×6 (00:36→20:21)
[2019-05-30] MEDS: FENTANYL CITRATE/PF 500 MCG in SODIUM CHLORIDE 0.9% 40 ML IV PRN ×2 (00:58→09:23)
[2019-05-30] MEDS: PIPERACILLIN/TAZOBACTAM 3.375 G in DEXT 5% WATER 100 ML IV SCH ×4 (01:00→20:05)
[2019-05-30] MEDS: CLONIDINE 0.1MG TABLET PO PRN (01:19)
[2019-05-30] MEDS: VANCOMYCIN 1250MG in DEXTROSE 5% WATER 250ML IV SCH ×2 (05:14→17:45)
[2019-05-30 06:07] LABS: HEMATOCRIT. 30.7 % (42.0-52.0); HEMOGLOBIN. 9.9 g/dL (14.0-18.0); MEAN CORPUSCULAR HEMOGLOBIN 27.3 pg (28.0-32.0); MEAN CORPUSCULAR VOLUME 84.7 fL (80.0-94.0); PLATELET 271 x1000/uL (130-400); RED BLOOD CELL COUNT 3.63 mill/uL (4.7-6.1)
[2019-05-30] MEDS: BLOOD SUGAR DIAGNOSTIC STRIP TEST SCH ×4 (06:21→20:02)
[2019-05-30] MEDS: INSULIN LISPRO 100 UNITS/ML SUBCUT SCH ×4 (06:21→20:05)
[2019-05-30 06:27] LABS: CHLORIDE 99 mEq/L (98-107)
[2019-05-30] MEDS: BUDESONIDE 0.5MG/2ML NEB HHN SCH ×2 (07:35→20:21)
[2019-05-30 07:38] LABS: BG BASE EXCESS 7.2 mmol/L (-2.0-2.0); BG CARBOXYHEMOGLOBIN 0.5 % (0.5-1.5); BG DEOXYHEMOGLOBIN 4.4 % (0.0-5.0); BG FRACTION INSPIRED OXYGEN 35; BG HCO3 ACT 31.9 mmol/L (22.0-26.0); BG METHEMOGLOBIN 0.1 % (0.0-1.5); BG OXYGEN SATURATION 95.6 % (92.0-98.5); BG PCO2 46.1 mmHg (35.0-45.0); BG PH 7.458 (7.350-7.450); BG PO2 81.3 mmHg (75.0-100.0); BG SAMPLE SITE RIGHT BRACHIAL; BG TIDAL VOLUME(mL) 500 mL; BG TOTAL HEMOGLOBIN 10.7 g/dL (12.0-18.0); BG VENT MODE VENT - A/C; BG VENT RATE 14 set
[2019-05-30] MEDS: PANTOPRAZOLE SODIUM 40 MG/VIAL IV SCH ×2 (08:00→20:05)
[2019-05-30] MEDS: LOSARTAN POTASSIUM 25 MG TABLET PO SCH (08:00)
[2019-05-30] MEDS: IRON SUCROSE COMPLEX 100 MG/5 ML ML IV SCH (08:00)
[2019-05-30 08:05] LABS: PLATELET ESTIMATE NORMAL
[2019-05-30] MEDS: INSULIN GLARGINE UD 100 UNITS/ML SYR SUBCUT SCH ×2 (09:03→21:28)
[2019-05-30] MEDS: MIDAZOLAM HCL 100 MG in DEXT 5% WATER 80 ML IV PRN (09:44)
[2019-05-30 13:20] LABS: BG CARBOXYHEMOGLOBIN 0.6 % (0.5-1.5); BG DEOXYHEMOGLOBIN 3.3 % (0.0-5.0); BG FRACTION INSPIRED OXYGEN 35; BG HCO3 ACT 31.4 mmol/L (22.0-26.0); BG METHEMOGLOBIN 0.2 % (0.0-1.5); BG OXYGEN SATURATION 96.7 % (92.0-98.5); BG OXYHEMOGLOBIN 95.9 % (94.0-97.0); BG PCO2 44.2 mmHg (35.0-45.0); BG PO2 89.1 mmHg (75.0-100.0); BG PRESSURE SUPPORT 8; BG SAMPLE SITE RIGHT RADIAL; BG TOTAL HEMOGLOBIN 11.8 g/dL (12.0-18.0); BG VENT MODE VENT - CPAP
[2019-05-30] MEDS ORDERED: HYDRALAZINE 20MG/ML VIAL IV PRN (15:30)
[2019-05-30] MEDS ORDERED: FUROSEMIDE 20MG/2ML VIAL IVP NR (17:00)
[2019-05-31] VITALS (26 sets, daily range): BP systolic 106–147; BP diastolic 59–96
[2019-05-31] MEDS: IPRATROPIUM/ALBUTEROL 0.5-3(2.5)MG/3ML NEB HHN SCH ×6 (00:19→20:59)
[2019-05-31] MEDS: PIPERACILLIN/TAZOBACTAM 3.375 G in DEXT 5% WATER 100 ML IV SCH ×4 (01:21→20:28)
[2019-05-31] MEDS: VANCOMYCIN 1250MG in DEXTROSE 5% WATER 250ML IV SCH ×2 (04:58→17:29)
[2019-05-31] MEDS: BLOOD SUGAR DIAGNOSTIC STRIP TEST SCH ×4 (06:08→20:30)
[2019-05-31] MEDS: INSULIN LISPRO 100 UNITS/ML SUBCUT SCH ×4 (06:08→20:30)
[2019-05-31 06:25] LABS: BASOPHILS % 0.5 % (0.0-2.0); EOSINOPHILS % 0.6 % (0.0-5.0); HEMATOCRIT. 32.5 % (42.0-52.0); HEMOGLOBIN. 10.9 g/dL (14.0-18.0); LYMPHOCYTES % 7.5 % (20.0-50.0); MEAN CORPUSCULAR HEMOGLOBIN 28.1 pg (28.0-32.0); MEAN CORPUSCULAR VOLUME 83.8 fL (80.0-94.0); MEAN PLATELET VOLUME 8.1 fl (7.4-10.4); MONOCYTES % 13.6 % (2.0-8.0); NEUTROPHILS % 77.8 % (40.0-76.0); PLATELET 292 x1000/uL (130-400); RED BLOOD CELL COUNT 3.87 mill/uL (4.7-6.1); RED CELL DISTRIBUTION WIDTH 17.3 % (11.6-14.6)
[2019-05-31 06:31] LABS: CHLORIDE 98 mEq/L (98-107)
[2019-05-31] MEDS ORDERED: POTASSIUM CHLORIDE 20MEQ/PACKET PO NR (08:00)
[2019-05-31] MEDS: IRON SUCROSE COMPLEX 100 MG/5 ML ML IV SCH (08:07)
[2019-05-31] MEDS: LOSARTAN POTASSIUM 25 MG TABLET PO SCH ×3 (08:07→20:29)
[2019-05-31] MEDS: PANTOPRAZOLE SODIUM 40 MG/VIAL IV SCH ×2 (08:07→20:29)
[2019-05-31] MEDS: BUDESONIDE 0.5MG/2ML NEB HHN SCH ×2 (08:09→20:59)
[2019-05-31] MEDS ORDERED: POTASSIUM CHLORIDE INJ 40 MEQ in DEXT 5% WATER 250 ML IV NR (09:00)
[2019-05-31] MEDS: INSULIN GLARGINE UD 100 UNITS/ML SYR SUBCUT SCH ×2 (09:25→22:47)
[2019-05-31] MEDS: DOCUSATE SODIUM 250MG CAPSULE PO SCH (11:47)
[2019-05-31] MEDS: FERROUS SULFATE 325MG TABLET PO SCH ×2 (12:17→17:32)
[2019-05-31] MEDS: ACETAMINOPHEN 325MG TABLET PO PRN (13:06)
[2019-05-31] MEDS: ATORVASTATIN CALCIUM 10MG TABLET PO SCH (20:29)
[2019-06-01] VITALS (12 sets, daily range): BP systolic 110–143; BP diastolic 67–86
[2019-06-01] MEDS: IPRATROPIUM/ALBUTEROL 0.5-3(2.5)MG/3ML NEB HHN SCH ×5 (00:16→20:28)
[2019-06-01] MEDS: PIPERACILLIN/TAZOBACTAM 3.375 G in DEXT 5% WATER 100 ML IV SCH ×4 (01:28→19:37)
[2019-06-01] MEDS: ONDANSETRON HCL 4MG/2ML INJ IV PRN ×3 (03:43→22:25)
[2019-06-01] MEDS: VANCOMYCIN 1250MG in DEXTROSE 5% WATER 250ML IV SCH (04:33)
[2019-06-01 07:20] LABS: HEMATOCRIT. 32.1 % (42.0-52.0); HEMOGLOBIN. 10.7 g/dL (14.0-18.0); MEAN CORPUSCULAR HEMOGLOBIN 28.1 pg (28.0-32.0); MEAN CORPUSCULAR VOLUME 84.1 fL (80.0-94.0); MEAN PLATELET VOLUME 8.3 fl (7.4-10.4); PLATELET 290 x1000/uL (130-400); RED BLOOD CELL COUNT 3.81 mill/uL (4.7-6.1); RED CELL DISTRIBUTION WIDTH 17.5 % (11.6-14.6)
[2019-06-01 07:21] LABS: CHLORIDE 99 mEq/L (98-107)
[2019-06-01] MEDS: BLOOD SUGAR DIAGNOSTIC STRIP TEST SCH ×4 (08:11→20:39)
[2019-06-01] MEDS ORDERED: POTASSIUM CHLORIDE 20MEQ TABLET SR PO NR (08:30)
[2019-06-01] MEDS: LOSARTAN POTASSIUM 25 MG TABLET PO SCH ×2 (08:47→20:37)
[2019-06-01] MEDS: FERROUS SULFATE 325MG TABLET PO SCH ×3 (08:47→18:46)
[2019-06-01] MEDS: INSULIN LISPRO 100 UNITS/ML SUBCUT SCH ×4 (08:47→20:38)
[2019-06-01] MEDS: DOCUSATE SODIUM 250MG CAPSULE PO SCH (08:47)
[2019-06-01] MEDS: PANTOPRAZOLE SODIUM 40 MG/VIAL IV SCH ×2 (08:48→20:37)
[2019-06-01] MEDS: BUDESONIDE 0.5MG/2ML NEB HHN SCH ×2 (09:27→20:29)
[2019-06-01] MEDS ORDERED: POTASSIUM CHLORIDE INJ 40 MEQ in DEXT 5% WATER 250 ML IV NR (09:30)
[2019-06-01 09:39] LABS: PLATELET ESTIMATE NORMAL
[2019-06-01] MEDS: INSULIN GLARGINE UD 100 UNITS/ML SYR SUBCUT SCH ×2 (10:42→22:19)
[2019-06-01] MEDS: ACETAMINOPHEN 325MG TABLET PO PRN (18:56)
[2019-06-01] MEDS: ATORVASTATIN CALCIUM 10MG TABLET PO SCH (20:37)
[2019-06-02] VITALS (12 sets, daily range): BP systolic 93–142; BP diastolic 46–93
[2019-06-02] MEDS: IPRATROPIUM/ALBUTEROL 0.5-3(2.5)MG/3ML NEB HHN SCH ×6 (04:01→20:51)
[2019-06-02 06:28] LABS: BASOPHILS % 0.7 % (0.0-2.0); EOSINOPHILS % 1.7 % (0.0-5.0); HEMATOCRIT. 33.5 % (42.0-52.0); HEMOGLOBIN. 11.1 g/dL (14.0-18.0); LYMPHOCYTES % 13.4 % (20.0-50.0); MEAN CORPUSCULAR VOLUME 84.5 fL (80.0-94.0); MEAN PLATELET VOLUME 8.1 fl (7.4-10.4); MONOCYTES % 12.9 % (2.0-8.0); NEUTROPHILS % 71.3 % (40.0-76.0); PLATELET 324 x1000/uL (130-400); RED BLOOD CELL COUNT 3.97 mill/uL (4.7-6.1); RED CELL DISTRIBUTION WIDTH 17.2 % (11.6-14.6)
[2019-06-02 06:43] LABS: CHLORIDE 102 mEq/L (98-107)
[2019-06-02 07:01] LABS: TOTAL IRON BINDING CAPACITY 259 ug/dL (250-450)
[2019-06-02] MEDS: BLOOD SUGAR DIAGNOSTIC STRIP TEST SCH ×4 (07:30→23:23)
[2019-06-02] MEDS: BUDESONIDE 0.5MG/2ML NEB HHN SCH ×2 (07:50→20:52)
[2019-06-02] MEDS: DOCUSATE SODIUM 250MG CAPSULE PO SCH (09:00)
[2019-06-02] MEDS: PANTOPRAZOLE SODIUM 40 MG/VIAL IV SCH ×2 (09:58→20:32)
[2019-06-02] MEDS: LOSARTAN POTASSIUM 25 MG TABLET PO SCH ×2 (09:58→20:32)
[2019-06-02] MEDS: FERROUS SULFATE 325MG TABLET PO SCH ×3 (09:59→17:45)
[2019-06-02] MEDS: INSULIN LISPRO 100 UNITS/ML SUBCUT SCH ×4 (10:03→20:32)
[2019-06-02] MEDS: INSULIN GLARGINE UD 100 UNITS/ML SYR SUBCUT SCH ×2 (10:03→22:08)
[2019-06-02] MEDS: ATORVASTATIN CALCIUM 10MG TABLET PO SCH (20:32)
[2019-06-03] MEDS: IPRATROPIUM/ALBUTEROL 0.5-3(2.5)MG/3ML NEB HHN SCH ×3 (00:13→08:47)
[2019-06-03 02:00] VITALS: BP 121/74
[2019-06-03] MEDS: ONDANSETRON HCL 4MG/2ML INJ IV PRN (04:08)
[2019-06-03 06:00] VITALS: BP 134/79
[2019-06-03 08:00] VITALS: BP 132/69
[2019-06-03] MEDS: INSULIN LISPRO 100 UNITS/ML SUBCUT SCH (08:00)
[2019-06-03] MEDS: BLOOD SUGAR DIAGNOSTIC STRIP TEST SCH (08:13)
[2019-06-03] MEDS: PANTOPRAZOLE SODIUM 40 MG/VIAL IV SCH (08:28)
[2019-06-03] MEDS: DOCUSATE SODIUM 250MG CAPSULE PO SCH (08:28)
[2019-06-03] MEDS: FERROUS SULFATE 325MG TABLET PO SCH (08:28)
[2019-06-03] MEDS: LOSARTAN POTASSIUM 25 MG TABLET PO SCH (08:29)
[2019-06-03] MEDS: BUDESONIDE 0.5MG/2ML NEB HHN SCH (08:47)
[2019-06-03 09:03] VITALS: BP 132/69
== END 2019-06-03 19:10 | disposition home health service (06) | DRG 870 ==
LOC: ER 02:33 → MICUSO 02:57 → ENRESERV 10:02 → 5EST 05-31 10:20
PROVIDERS: ADMIT Internal Medicine; ATTEND Internal Medicine
PROC: 5A1955Z Respiratory Ventilation, Greater than 96 Consecutive Hours (ICD-10-PCS; principal; 2019-05-25)
PROC: 0BH17EZ Insertion of Endotracheal Airway into Trachea, Via Natural or Artificial Opening (ICD-10-PCS; 2019-05-25)
PROC: 5A09357 Assistance with Respiratory Ventilation, Less than 24 Consecutive Hours, Continuous Positive Airway Pressure (ICD-10-PCS; 2019-05-25)
PROC: 06HY33Z Insertion of Infusion Device into Lower Vein, Percutaneous Approach (ICD-10-PCS; 2019-05-28)
PROC: B54MZZA Ultrasonography of Right Upper Extremity Veins, Guidance (ICD-10-PCS; 2019-05-28)
PROC: 30233N1 Transfusion of Nonautologous Red Blood Cells into Peripheral Vein, Percutaneous Approach (ICD-10-PCS; 2019-05-28)
PROC: 0DB78ZX Excision of Stomach, Pylorus, Via Natural or Artificial Opening Endoscopic, Diagnostic (ICD-10-PCS; 2019-05-29)
DX: A41.9 Sepsis, unspecified organism (principal); J18.9 Pneumonia, unspecified organism; I50.23 Acute on chronic systolic (congestive) heart failure; J96.01 Acute respiratory failure with hypoxia; J44.0 Chronic obstructive pulmonary disease with (acute) lower respiratory infection; J44.1 Chronic obstructive pulmonary disease with (acute) exacerbation; E87.1 Hypo-osmolality and hyponatremia; I42.9 Cardiomyopathy, unspecified; D50.9 Iron deficiency anemia, unspecified; E87.8 Other disorders of electrolyte and fluid balance, not elsewhere classified; E11.43 Type 2 diabetes mellitus with diabetic autonomic (poly)neuropathy; I16.0 Hypertensive urgency; I11.0 Hypertensive heart disease with heart failure; F17.210 Nicotine dependence, cigarettes, uncomplicated; K31.84 Gastroparesis; E78.5 Hyperlipidemia, unspecified; K29.70 Gastritis, unspecified, without bleeding; I45.10 Unspecified right bundle-branch block; I25.10 Atherosclerotic heart disease of native coronary artery without angina pectoris; E87.6 Hypokalemia; I25.5 Ischemic cardiomyopathy; Z95.5 Presence of coronary angioplasty implant and graft; I25.2 Old myocardial infarction; Z87.01 Personal history of pneumonia (recurrent); Z79.82 Long term (current) use of aspirin; Z79.899 Other long term (current) drug therapy; Z79.02 Long term (current) use of antithrombotics/antiplatelets; Z71.6 Tobacco abuse counseling; Z78.1 Physical restraint status
CPT/HCPCS: 36415; 36600; 71045; 76937; 80048; 80053; 80202; 80305; 81003; 82270; 82375; 82728; 82805; 82962; 83540; 83550; 83605; 83880; 84478; 84484; 85014; 85018; 85025; 86850; 86900; 86920; 87070; 87804; 88305; 88312; 88313; 90686; 90732; 92610; 93005; 93306; 93970; 94003; 94640; 96374; 97162; 97167; 99291; C1725; C9113; J0360; J1650; J1815; J1940; J2250; J2405; J2543; J2704; J3010; J3370; J3480; J3490; J7040; J7060; J7620; J7626; P9016; A4315